=== PATIENT | male | born 1950 | race Caucasian/White ===

== ENCOUNTER 2022-03-31 07:14 | Outpatient (CLI) | payer MEDICARE, OTHER, SELFPAY | END 2022-03-31 07:15 | disposition home or self-care (01) | LOC: INJ CL 07:18 | PROVIDERS: PCP Family Medicine; Visit Provider Family Medicine | DX: M51.36 Other intervertebral disc degeneration, lumbar region (principal); M54.16 Radiculopathy, lumbar region | CPT/HCPCS: 64483; J1100; Q9966 ==